=== PATIENT | male | born 1975 | race Caucasian/White ===

== ENCOUNTER 2017-12-10 14:21 | Emergency (ER) | payer OTHER ==
[~2017-12-10] VITALS: Ht 188 cm; Wt 215.3 kg
[2017-12-10 14:24] VITALS: TEMP 37; Ht 188 cm; Wt 215.3 kg
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
[2017-12-10 15:21] VITALS: BP 157/95; PULSE 94; O2SAT 96
== END 2017-12-10 15:20 | disposition home or self-care (01) ==
LOC: EDBD 14:21 → C.EDC 14:23
DX: M54.2 Cervicalgia (principal); V49.40XA Driver injured in collision with unspecified motor vehicles in traffic accident, initial encounter; E11.65 Type 2 diabetes mellitus with hyperglycemia; I10 Essential (primary) hypertension; F17.200 Nicotine dependence, unspecified, uncomplicated